=== PATIENT | male | born 1940 | race Caucasian/White ===

== ENCOUNTER 2019-12-31 08:57 | Day surgery (SDC) | payer MEDICARE, BC, OTHER ==
[~2019-12-31] VITALS: Ht 190.5 cm; Wt 127.2 kg
[~2019-12-31 08:57] MED LIST: AMLODIPINE; ASPIR 8181 MG PO; FINASTERIDE5 MG PO; FLUOXETINE HCL40 MG PO; LISINOPRIL-HCT1 EACH PO; OMEPRAZOLE20 MG PO; ONE DAILY COMP1 EACH PO; PRAVASTATIN SOD40 MG PO; PROSCAR5 MG PO; VITAMIN D21250 MCG; VITAMIN D3400 UNIT PO; VITAMIN D350 MC4; WELLBUTRIN SR150 MG PO; ZOSTAVAX VIAL1 VIAL SUB-Q
--- NOTE | 2019-12-31 11:32 | NUR ---
12/31/19 1132 [place] 1118 PT ARRIVED PACU SLEEPY. ABD FIRM AND PASSING FLATUS. 1130 AWAKE AND SITTING UP IN BED TALKING TO STAFF. DENTURES AND GLASSES RETURNED TO PT.
--- NOTE | 2020-01-01 11:10 | PATH ---
[facility] [address] [place], [place] [address] Signed SPECIMEN(S): A DUODENAL BIOPSY SPECIMEN(S): B ANTRUM/PYLORUS SPECIMEN(S): C NODULE OF STOMACH SPECIMEN(S): D LOWER ESOPHAGUS SPECIMEN(S): E TRANSVERSE POLYP, LEFT SPECIMEN SOURCE: A. DUODENAL BIOPSY B. ANTRUM/PYLORUS C. NODULE OF STOMACH D. LOWER ESOPHAGUS E. TRANSVERSE POLYP, LEFT CLINICAL HISTORY: Pre: Anemia, history polyps. Post: Chronic gastritis, vocal cord plaque, diverticula, polyp x 1. Esophagogastroduodenoscopy, colonoscopy. MICROSCOPIC DESCRIPTION: Histologic sections of all submitted blocks are examined by light microscopy. These findings, together with the gross examination, support the pathologic diagnosis. FINAL PATHOLOGIC DIAGNOSIS: A. Duodenum, biopsy: - Duodenal mucosa with no histopathologic abnormality. - Negative for dysplasia or malignancy. B. Stomach, antrum/pylorus, biopsy: - Antral mucosa with chronic, active gastritis. - Positive for Helicobacter organisms on HE stain. - Negative for dysplasia or malignancy. C. Stomach, nodule, biopsy: - Fragments of polypoid antral and oxyntic mucosa with chronic, active gastritis. - Positive for Helicobacter organisms on HE stain. - Negative for dysplasia or malignancy. D. Esophagus, lower, biopsy: - Squamous mucosa with chronic inflammation and reactive epithelial changes, consistent with reflux esophagitis. - Negative for intestinal metaplasia, dysplasia, or malignancy. E. Colon, transverse, polyp, polypectomy: - Tubular adenoma. - Negative for high-grade dysplasia or malignancy. PATIENT NAME: TIFFANY PRAJAPATI PATHOLOGY DATE OF : 44 REPORT #: [id number] PHYSICIAN: WENDY MOREIRA PCP: FLY MONTELONGO MD REPORT IS CONFIDENTIAL AND NOT TO BE RELEASED WITHOUT AUTHORIZATION [facility] [address] [place], [place] [address] Signed NAL:cml:C2NR GROSS DESCRIPTION: Five specimens are received in five containers, labeled "BN." A. The specimen, labeled "BN, #1," and designated on the requisition "duodenum," is received in formalin and consists of two curry soft tissue fragments that measure 0.3 cm in greatest dimension. The specimen is entirely submitted in cassette (A1). B. The specimen, labeled "BN, #2," and designated on the requisition "antrum/pylorus," is received in formalin and consists of two curry soft tissue fragments that measure 0.2-0.3 cm in greatest dimension. The specimen is entirely submitted in cassette (B1). C. The specimen, labeled "BN, #3," and designated on the requisition "nodule of stomach," is received in formalin and consists of two curry soft tissue fragments that measure 0.2-0.3 cm in greatest dimension. The specimen is entirely submitted in cassette (C1). D. The specimen, labeled "BN, #4," and designated on the requisition "lower esophagus," is received in formalin and consists of one curry soft tissue fragment that measures 0.5 cm in greatest dimension. The specimen is entirely submitted in cassette (D1). E. The specimen, labeled "BN, #5," and designated on the requisition "left transverse colon polyp," is received in formalin and consists of one curry soft tissue fragment that measures 0.3 cm in greatest dimension. The specimen is entirely submitted in cassette (E1). AT (under the direct supervision of a pathologist) The Gross Description was prepared using a voice recognition system. The report was reviewed for accuracy; however, sound-alike word errors, addition and/or deletions may occur. If there is any question about this report, please contact Client Services. PERFORMING LABORATORY: The technical component was performed by [facility] [address] (Chemical Plant Operator Supervisor: Mona Araujo MD; CLIA# [id number]). [facility], [address] [address] (CLIA# [id number]). Diagnostician: Lina Rios MD Pathologist Electronically Signed 01/01/2020 PATIENT NAME: TIFFANY PRAJAPATI PATHOLOGY DATE OF : 44 REPORT #: [id number] PHYSICIAN: WENDY PATHOLOGY PCP: FLY MONTELONGO MD REPORT IS CONFIDENTIAL AND NOT TO BE RELEASED WITHOUT AUTHORIZATION [facility] [address] [place] [id number] Signed Copies: ~ PATIENT NAME: TIFFANY PRAJAPATI PATHOLOGY DATE OF : 44 REPORT #: [id number] PHYSICIAN: WENDY PATHOLOGY PCP: FLY MONTELONGO MD REPORT IS CONFIDENTIAL AND NOT TO BE RELEASED WITHOUT AUTHORIZATION
--- NOTE | 2020-01-01 20:45 | EKG ---
[facility] [address] [facility] [place], [place] [address] Signed Sinus rhythm with 1st degree AV block with premature atrial complexes Left axis deviation Right bundle branch block Septal infarct , age undetermined Abnormal ECG No previous ECGs available Confirmed by JULIO CESAR RAI DO ([id number]) on 01/01/2020 8:44:47 PM Electronically Signed By: JULIO CESAR RAI DO 01/01/20 2045 PATIENT NAME: TIFFANY PRAJAPATI Electrocardiogram DATE OF : 44 PHYSICIAN: JULIO CESAR RAI DO REPORT #: [id number] REPORT IS CONFIDENTIAL AND NOT TO BE RELEASED WITHOUT AUTHORIZATION
--- NOTE | 2020-01-02 07:58 | OR ---
[facility] [address] [place], [place] [address] Signed DATE OF OPERATION: 12/31/2019 SURGEON: Romy Cook MD DATE OF PROCEDURE: 12/31/2019 PREOPERATIVE DIAGNOSES: Anemia (hematocrit 31), episodic dark stools. POSTOPERATIVE DIAGNOSES: 1. Chronic gastritis without ulceration. 2. Right vocal cord plaque. 3. 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 PROCEDURE: 1. Esophagogastroduodenoscopy with biopsy. 2. Total colonoscopy to cecum with cold morcellation polypectomy x1. ANESTHESIA: Intravenous sedation, propofol infusional techniques Reggie Velasquez CRNA INDICATIONS: This 79-year-old white man has numerous medical problems. He is a patient of Dr. Fly Montelongo. He has been referred for upper endoscopy and colonoscopy for anemia. The patient was found to have a hematocrit of 31 and some episodes of dark stool but no dudley hematemesis or blood per rectum. He has no family history of colon cancer, stomach, or esophageal cancer. No personal history of peptic ulceration. He did have a colonoscopy in 2002 which showed polyps. The patient is admitted at this time to undergo upper endoscopy and colonoscopy to better characterize the problem of anemia. He understands the risks of bleeding, infection, and perforation. FINDINGS: Upper endoscopy showed what appeared to be a plaque of the right vocal cord itself. Of course, this was not biopsied at this time. Esophagus was normal. The stomach showed chronic inflammation, but no sign of ulceration proper. CLOtest was negative 15 minutes post procedure. Duodenum and stomach were otherwise normal, although there was a small nodule of the antrum that was excised. Colonoscopy showed a good prep overall. Complete colonoscopy was undertaken to the Electronically Signed By: ROMY COOK MD 01/02/20 0758 PATIENT NAME: TIFFANY PRAJAPATI OPERATIVE REPORT DATE OF : 44 REPORT #: [id number] PHYSICIAN: ROMY COOK MD PCP: FLY MONTELONGO MD REPORT IS CONFIDENTIAL AND NOT TO BE RELEASED WITHOUT AUTHORIZATION [facility] [address] [place], [place] [address] Signed cecum. There were diverticula of the sigmoid colon and a small polyp of the left transverse colon which was excised. There were no other findings of note. In aggregate, there was no lesion on upper or lower endoscopic evaluation to account for anemia. DESCRIPTION OF PROCEDURE: The patient was brought to the operating room endoscopy suite, placed in lateral decubitus position, given intravenous sedation with propofol infusional technique by the cabinetmaker helper. A bite block was placed. An Olympus video upper endoscope was passed in the hypopharynx. The vocal cords were examined and there appeared to be a whitish plaque on the right vocal cord. The scope was advanced to the esophagus throughout its length, it was normal. Scope was advanced to the stomach, which was insufflated with air. Rugal folds were normal. Antral motility was normal. The antrum did have chronic inflammatory change without sign of true ulceration. There was a small polyp or nodule, which was excised as well as biopsies of the antrum undertaken. The scope was passed through the pylorus into the duodenum, which was normal. Biopsies were taken of the duodenum to assess for celiac disease. The scope was withdrawn and retroflexed view showed a reasonably good and intact flap valve. No sign of large hiatal hernia by any means. The scope was withdrawn to the distal esophagus where biopsies were taken of normal-appearing mucosa. Withdrawal of scope showed no other abnormality. Plans were then made for colonoscopy. Digital rectal examination was undertaken, which was normal. An Olympus video colonoscope was passed in the rectum and manipulated throughout the colon ultimately intubating the right colon and area of the cecum. The ileocecal valve was identified. The cecum itself was grasped and elevated, showing no sign of neoplasm behind the ileocecal valve. The scope was carefully withdrawn and examination showed no abnormality to the left transverse colon where a small polyp was noted, this was excised with cold morcellation technique. Further withdrawal of scope confirmed diverticula of the sigmoid and left colon. Retroflexed view of the rectum was normal. Scope was removed and the patient was taken to the recovery room in good condition. CONCLUDING DIAGNOSIS: No lesion specifically to account for anemia unless chronic gastritis is contributing to it. PLAN: Electronically Signed By: ROMY COOK MD 01/02/20 0758 PATIENT NAME: TIFFANY PRAJAPATI OPERATIVE REPORT DATE OF : 44 REPORT #: [id number] PHYSICIAN: ROMY COOK MD PCP: FLY MONTELONGO MD REPORT IS CONFIDENTIAL AND NOT TO BE RELEASED WITHOUT AUTHORIZATION [address] [address] Signed He will return to the ongoing care of Dr. Montelongo. Consideration should be made for ENT evaluation of right cord plaque. MD EVERETT Felix/LALITA /[id number] cc: Fly Montelongo MD Copies: FLY MONTELONGO DMD ~ Electronically Signed By: ROMY COOK MD 01/02/20 0758 PATIENT NAME: VICTORINATIFFANY BARCLAY OPERATIVE REPORT DATE OF : 44 REPORT #: [id number] PHYSICIAN: ROMY COOK MD PCP: FLY MONTELONGO MD REPORT IS CONFIDENTIAL AND NOT TO BE RELEASED WITHOUT AUTHORIZATION
== END 2019-12-31 12:00 | disposition home or self-care (01) ==
LOC: OPS 08:57 → DS 08:57 → OPS 10:45
PROVIDERS: ATTEND Surgery
PROC: 0DB38ZX Excision of Lower Esophagus, Via Natural or Artificial Opening Endoscopic, Diagnostic (ICD-10-PCS; 2019-12-31)
PROC: 0DBL8ZZ Excision of Transverse Colon, Via Natural or Artificial Opening Endoscopic (ICD-10-PCS; 2019-12-31)
PROC: 0DB98ZX Excision of Duodenum, Via Natural or Artificial Opening Endoscopic, Diagnostic (ICD-10-PCS; principal; 2019-12-31 10:45)
PROC: 0DB78ZX Excision of Stomach, Pylorus, Via Natural or Artificial Opening Endoscopic, Diagnostic (ICD-10-PCS; 2019-12-31 10:45)
DX: D12.3 Benign neoplasm of transverse colon (principal); K57.30 Diverticulosis of large intestine without perforation or abscess without bleeding; K29.50 Unspecified chronic gastritis without bleeding; B96.81 Helicobacter pylori [H. pylori] as the cause of diseases classified elsewhere; K20.90 Esophagitis, unspecified without bleeding; I10 Essential (primary) hypertension; G47.33 Obstructive sleep apnea (adult) (pediatric); Z86.010 Personal history of colon polyps; Z79.899 Other long term (current) drug therapy; Z79.82 Long term (current) use of aspirin; Z99.89 Dependence on other enabling machines and devices; Z87.891 Personal history of nicotine dependence
CPT/HCPCS: 93005; 93010; J2704; J7121

== ENCOUNTER 2020-02-04 07:48 | Day surgery (SDC) | payer MEDICARE, BC ==
[2020-02-04] MEDS ORDERED: VITAMIN B125000 MCG SUB-Q (08:27)
--- NOTE | 2020-02-04 09:56 | NUR ---
02/04/20 0956 Amanda Persaud 0943- PT ARRIVES TO PACU. OPENS EYES TO VERBAL COMMANDS. PT DENIES DISCOMFORT. RESPIRATIONS EVEN AND UNLABORED. AUDIBLE EXPIRATORY WHEEZE.
--- NOTE | 2020-02-04 10:16 | NUR ---
PT ARRIVES BACK TO DS RM 5 AWAKE AND ALERT. PT HAS NOTABLE AUDITORY WHEEZE THAT WAS NOT PRESENT ON ADMISSION. PT SPOUSE STATES THAT "PT HAS THIS AT HOME SOMEIMES AND THEN IT GOES AWAY." PT DENIES ANY DIFFICULTIES BREATHING, PAIN OR NAUSEA. PROVIDED ICE WATER AT BEDSIDE. DC CRITERIA EXPLAINED. CALL LIGHT WITHIN REACH.
--- NOTE | 2020-02-04 11:09 | NUR ---
PT RESTING IN BED WITH SPOUSE AT BEDSIDE. PT STATES FEELING A LITTLE "GROGGY" STILL. PT HAS NON PRODUCTIVE COUGH AND IS PROVIDED I.S. AND EDUCATED ON USE. PT TOLERATES WATER AND WOULD LIKE PUDDING. CALL LIGHT WITHIN REACH.
--- NOTE | 2020-02-04 11:45 | NUR ---
1115: PT TOLERATES PUDDING AND ASKS FOR SECONDS. ICED WATER REFILLED AT THIS TIME. 1130: PT UP TO BATHROOM WITH FWW AND RN ASSISST. PT UNABLE TO VOID AT THIS TIME. PT SPOUSE ASSISTS PT GETTING DRESSED. DC INSTRUCTIONS PRESENTED TO PT AND SPOUSE, ALL QUESTIONS ADDRESSED. PT ADVISED TO NOTIFY MD IF UNABLE TO VOID AT HOME TODAY. PT DC VIA WC TO SPOUSE VEHICLE AT [facility] TO HOME.
--- NOTE | 2020-02-04 13:55 | EKG ---
[facility] [address] [facility] [place] [address] Signed Sinus rhythm with 1st degree AV block Right bundle branch block Left anterior fascicular block Bifascicular block Abnormal ECG When compared with ECG of 31-DEC-2019 09:24, premature atrial complexes are no longer present Criteria for Septal infarct are no longer present Confirmed by JULIO CESAR RAI DO ([id number]) on 02/04/2020 1:55:23 PM Electronically Signed By: JULIO CESAR RAI DO 02/04/20 1355 PATIENT NAME: TIFFANY PRAJAPATI Electrocardiogram DATE OF : 44 PHYSICIAN: JULIO CESAR RAI DO REPORT #: [id number] REPORT IS CONFIDENTIAL AND NOT TO BE RELEASED WITHOUT AUTHORIZATION
--- NOTE | 2020-02-07 14:26 | PATH ---
[facility] [address] [place], [place] [address] Signed SPECIMEN(S): A RIGHT VOCAL CORD SPECIMEN SOURCE: A. RIGHT VOCAL CORD CLINICAL HISTORY: Nodule right vocal cord. 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 - Negative for evidence of malignancy. - A PAS with diastase stain highlights a few superficial fungal organisms. COMMENT: The biopsy reveals a squamous papilloma with focal hyperkeratosis and focal mild squamous atypia (likely reactive). There is no evidence of malignancy on these sections. Benign respiratory type mucosa is also present. A PAS with diastase stain is negative for fungal organisms. JVR:cml:C2NR MICROSCOPIC EXAMINATION: Histologic sections of all submitted blocks are examined by light microscopy. These findings, together with the gross examination, support the pathologic diagnosis. A PAS with diastase stain is performed with appropriate controls and is positive for fungal organisms. JVR:cml GROSS DESCRIPTION: The specimen, labeled "Tiffany Prajapati," and designated on the requisition "right vocal cord lesion," is received in formalin and consists of five pink-curry soft tissue fragment(s) that measure 0.1-0.7 cm in greatest dimension. The specimen is entirely submitted in cassette (A1). FB (under the direct supervision of a pathologist) The Gross Description was prepared using a voice recognition system. The report was reviewed for accuracy; however, sound-alike word errors, addition and/or deletions may occur. If there is any question about this report, please contact Client Services. PATIENT NAME: TIFFANY PRAJAPATI PATHOLOGY DATE OF : 44 REPORT #: [id number] PHYSICIAN: WENDY PATHOLOGY PCP: FLY MONTELONGO MD REPORT IS CONFIDENTIAL AND NOT TO BE RELEASED WITHOUT AUTHORIZATION [address] [place], [place] [address] Signed PERFORMING LABORATORY: The technical component was performed by [facility], [address] [place] [address] (Social Worker Psychiatric: Mona Araujo MD; CLIA# [id number]). Professional interpretation was performed by [facility], [place] [address] (Social Worker Psychiatric: Yonis Banks M.D.). Diagnostician: Yonis Banks MD Pathologist Electronically Signed 02/07/2020 Copies: ~ PATIENT NAME: TIFFANY PRAJAPATI PATHOLOGY DATE OF : 44 REPORT #: [id number] PHYSICIAN: WENDY PATHOLOGY PCP: FLY MONTELONGO MD REPORT IS CONFIDENTIAL AND NOT TO BE RELEASED WITHOUT AUTHORIZATION
--- NOTE | 2020-02-11 17:16 | OR ---
[facility] [address] [place], [place] [address] Signed DATE OF OPERATION: 02/04/2020 SURGEON: Breezy Banda MD PREOPERATIVE DIAGNOSIS: Right vocal cord lesion. POSTOPERATIVE DIAGNOSIS: Right vocal cord lesion. PROCEDURES: 1. Direct laryngoscopy. 2. Excision of right vocal cord lesion. ANESTHESIA: General, orotracheal; WEB COORDINATOR, Daniel. PREOPERATIVE HISTORY: Tiffany is a 79-year-old man with a right vocal cord lesion, this was first identified by Dr. Gray during upper GI endoscopy. The patient did smoke, but quit 30 years ago, having a very slight amount of hoarseness, nothing significant. In any event, he was taken to the operating room for excision of this lesion after fiberoptic laryngoscopy in the office showed a discrete right mid vocal cord lesion. OPERATIVE PROCEDURE AND FINDINGS: After informed consent, the patient was taken to the operating room and placed in supine position, where general orotracheal anesthesia was induced. The patient and procedure were verified. The patient was repositioned. Dedo laryngoscope used to visualize the hypopharynx and larynx, no abnormalities except on the right vocal cord. In the midportion of the cord, measuring about 15% to 20% of the length of the vocal cord, there was a white lesion, slightly elevated, started on the upper surface of the vocal cord extending down around the edge to under the vocal cord, probably about a centimeter in total diameter. The lesion was completely removed with right biting cup forceps, basically stripped off the mucosa, no remaining lesion was identified. This was a very superficial lesion, mucosal, minimal bleeding, stopped afterwards. Pharynx was suctioned clear of blood secretions. The patient was then awakened, extubated, and transported to the recovery room in good condition, no complications. ESTIMATED BLOOD LOSS: Minimal. Electronically Signed By: BREEZY BANDA MD 02/11/20 1716 PATIENT NAME: VICTORINATIFFANY OPERATIVE REPORT DATE OF : 44 REPORT #: [id number] PHYSICIAN: BREEZY BANDA MD PCP: FLY MONTELONGO MD REPORT IS CONFIDENTIAL AND NOT TO BE RELEASED WITHOUT AUTHORIZATION [facility] [address] [place] [address] Signed SPECIMENS: To Pathology. DRAINS: No drains. Breezy Banda MD GC/MODL /[id number] Copies: ~ Electronically Signed By: BREEZY BANDA MD 02/11/20 1716 PATIENT NAME: TIFFANY PRAJAPATI OPERATIVE REPORT DATE OF : 44 REPORT #: [id number] PHYSICIAN: BREEZY BANDA MD PCP: FLY MONTELONGO MD REPORT IS CONFIDENTIAL AND NOT TO BE RELEASED WITHOUT AUTHORIZATION
== END 2020-02-04 11:40 | disposition home or self-care (01) ==
LOC: OPS 07:48 → DS 07:48 → OPS 08:30
PROVIDERS: ATTEND Otolaryngology
PROC: 0CBT8ZZ Excision of Right Vocal Cord, Via Natural or Artificial Opening Endoscopic (ICD-10-PCS; principal; 2020-02-04 09:00)
DX: D14.1 Benign neoplasm of larynx (principal); I10 Essential (primary) hypertension; D64.9 Anemia, unspecified; N40.0 Benign prostatic hyperplasia without lower urinary tract symptoms; G47.30 Sleep apnea, unspecified; E66.9 Obesity, unspecified; Z79.899 Other long term (current) drug therapy; Z79.82 Long term (current) use of aspirin; Z68.34 Body mass index [BMI] 34.0-34.9, adult; Z99.89 Dependence on other enabling machines and devices; Z87.891 Personal history of nicotine dependence
CPT/HCPCS: 00320; 88305; 88312; 93005; 93010; J0330; J1100; J2001; J2405; J2704; J3010; J7121

== ENCOUNTER 2021-07-25 16:07 | Emergency (ER) | payer MEDICARE, BC ==
[~2021-07-25] VITALS: Ht 190.5 cm; Wt 139.2 kg
[~2021-07-25 16:07] MED LIST changes: +VITAMIN B125000 MCG SUB-Q
[2021-07-25] MEDS ORDERED: OCUVITE EYE +1 EACH PO (16:27)
[2021-07-25] MEDS ORDERED: FUROSEMIDE40 MG PO (16:29)
[2021-07-25] MEDS ORDERED: METOPROLOL SUCC25 MG PO (16:29)
[2021-07-25] MEDS ORDERED: POTASSIUM CHLO10 ME1 PO (16:29)
== END 2021-07-25 20:54 | disposition home or self-care (01) ==
LOC: ED 16:07
DX: U07.1 COVID-19 (principal); Z23 Encounter for immunization; I10 Essential (primary) hypertension; E78.5 Hyperlipidemia, unspecified; Z87.891 Personal history of nicotine dependence; Z79.899 Other long term (current) drug therapy; Z79.82 Long term (current) use of aspirin
CPT/HCPCS: 36415; 71045; 80053; 81001; 83605; 83880; 84484; 85025; 87502; 96361; 96374; 96375; 99283-25; J1100; J7030; U0003

== ENCOUNTER 2024-11-18 08:15 | Emergency (ER) | payer MEDICARE, BC ==
[~2024-11-18] VITALS: Ht 190.5 cm; Wt 148.5 kg
[~2024-11-18 08:15] MED LIST changes: +FUROSEMIDE40 MG PO; +GABAPENTIN300 MG PO; +HYDROCHLOROTHIA25 MG PO; +METOPROLOL SUCC25 MG PO; +OCUVITE EYE +1 EACH PO; +PAXLOVID 150-11 EAC1 PO; +POTASSIUM CHLO10 ME1 PO
[2024-11-18] MEDS ORDERED: ALBUTEROL/IPRATROPIUM 3 ML NEB INH ONE (08:30)
[2024-11-18 08:52] LABS: BASOPHILS 0.4 % (0.2-1.2); EOSINOPHILS 1.5 % (0.8-7.0); LYMPHOCYTES 19.4 % (21.8-53.1); MCH 30.9 PG (25.7-32.2); MCHC 34.1 g/dL (32.3-36.5); MCV 90.7 fL (79.0-92.2); MONOCYTES 8.9 % (5.3-12.2); NEUTROPHILS 69.3 % (34.0-67.9); RBC 4.75 M/uL (4.63-6.08)
[2024-11-18 09:24] LABS: ALT (SGPT) 36.0 U/L (14-59); AST (SGOT) 31.0 U/L (15-37); GLOMERULAR FILTRATION RATE,EST 55.0 mL/min (>60); PROTEIN, TOTAL 7.2 g/dL (6.4-8.2); UREA NITROGEN 18.0 mg/dL (7-18)
[2024-11-18 10:16] LABS: INFLUENZA B NAA NEGATIVE (NEGATIVE); RESPIRATORY SYNCYTIAL VIR NAA NEGATIVE (NEGATIVE)
[2024-11-18 12:14] VITALS: BP 119/80
--- NOTE | 2024-11-19 07:26 | EKG ---
[facility] [address] [facility] [place] [address] Signed Atrial fibrillation Right bundle branch block Left anterior fascicular block Bifascicular block Abnormal ECG When compared with ECG of 17-MAY-2023 08:45, Atrial fibrillation has replaced Sinus rhythm Criteria for Septal infarct are no longer present Confirmed by FLACA VOGEL MD ([id number]) on 11/19/2024 7:26:26 AM Electronically Signed By: FLACA VOGEL 11/19/24 0726 PATIENT NAME: VICTORINATIFFANYALANA BARCLAY Electrocardiogram DATE OF : 44 PHYSICIAN: FLACA VOGEL REPORT #: [id number] REPORT IS CONFIDENTIAL AND NOT TO BE RELEASED WITHOUT AUTHORIZATION
== END 2024-11-18 12:14 | disposition home or self-care (01) ==
LOC: ED 08:15
PROVIDERS: Emergency Medicine
DX: R06.02 Shortness of breath (principal); I10 Essential (primary) hypertension; E78.5 Hyperlipidemia, unspecified; Z87.891 Personal history of nicotine dependence; Z88.5 Allergy status to narcotic agent; Z79.899 Other long term (current) drug therapy; Z79.82 Long term (current) use of aspirin; Z11.52 Encounter for screening for COVID-19
CPT/HCPCS: 36415; 71045; 80053; 83880; 84484; 85025; 87502; 93005; 93010; 94640; 99285-25; U0002